=== PATIENT | male | born 1985 | race African-American/Black ===

== ENCOUNTER 2018-01-06 12:33 | Emergency (ER) | payer SELFPAY ==
[~2018-01-06] VITALS: Ht 180.3 cm; Wt 68.0 kg
--- NOTE | 2018-01-06 12:48 | NUR ---
Dr Brizuela at the bedside for MSE.
[2018-01-06 13:01] LABS: *BILIRUBIN,URIN NEGATIVE (NEGATIVE); *BLOOD, URINE NEGATIVE (NEGATIVE); *CLARITY,URINE CLEAR (CLEAR); *COLOR,URINE YELLOW (YELLOW); *KETONES,URINE NEGATIVE (NEGATIVE); *PROTEIN,URINE NEGATIVE (NEGATIVE); *UROBILINOGEN,URINE 0.2 E.U./dl (NORMAL); LEUKOCYTE ESTERASE ,URINE NEGATIVE (NEGATIVE); NITRITE, URINE NEGATIVE (NEGATIVE); PH,URINE 7.5 (5.0-8.0); UGLUCOSE NEGATIVE (NEGATIVE)
[2018-01-06 13:07] LABS: BACTERIA,URINE NONE SEEN /HPF (NONE SEEN); MUCUS,URINE FEW /LPF (0-FEW); RBC,URINE 0-3 /HPF (0-3); SQUAMOUS EPITHELIAL CELL,UR FEW /HPF (NONE SEEN); WBC,URINE 0-3 /HPF (0-3)
[2018-01-06] MEDS ORDERED: LIDOCAINE 5% PATCH TD ONE ×2 (13:30→13:36)
[2018-01-06] MEDS ORDERED: CELECOXIB 100 MG CAPSULE PO ONE (13:30)
[2018-01-06] MEDS ORDERED: CELECOXIB 100 MG CAPSULE ONE (13:36)
--- NOTE | 2018-01-06 14:08 | NUR ---
Patient discharged to home in stable conditon. Written and verbal after care instructions given. Patient verbalizes understanding of instructions.
[2018-01-06 14:09] VITALS: BP 138/77
== END 2018-01-06 14:34 | disposition home or self-care (01) ==
LOC: ER 12:33
DX: G89.29 Other chronic pain (principal); M25.552 Pain in left hip; M54.2 Cervicalgia; F32.9 Major depressive disorder, single episode, unspecified
CPT/HCPCS: A4663